=== PATIENT | male | born 1965 | race Hispanic/Latino ===

== ENCOUNTER 2017-12-29 06:28 | Day surgery (SDC) | payer OTHER ==
[~2017-12-29] VITALS: Ht 157.5 cm; Wt 77.1 kg
[~2017-12-29 06:28] MED LIST: SODIUM CHLORIDE 0.9% 1000ML 1,000 ML IV ONE
[2017-12-29 06:51] VITALS: BP 134/82
[2017-12-29] MEDS ORDERED: LIDOCAINE HCL 2% 20ML ONE (07:10)
[2017-12-29] MEDS ORDERED: PROPOFOL 10 MG/ML 20ML VIAL IV ONE (07:10)
== END 2017-12-29 08:05 | disposition home or self-care (01) ==
LOC: ENDO 06:28 → DAH 06:28 → ENDO 08:05
PROVIDERS: ATTEND Internal Medicine Gastroenterology
DX: K63.5 Polyp of colon (principal); K57.30 Diverticulosis of large intestine without perforation or abscess without bleeding; C20 Malignant neoplasm of rectum; E11.9 Type 2 diabetes mellitus without complications; E78.5 Hyperlipidemia, unspecified; Z79.899 Other long term (current) drug therapy; D12.5 Benign neoplasm of sigmoid colon; Z85.048 Personal history of other malignant neoplasm of rectum, rectosigmoid junction, and anus
CPT/HCPCS: 45380; 45385; A4606; J2704; J3490; J7030